=== PATIENT | male | born 1990 | race Caucasian/White ===

== ENCOUNTER 2017-01-01 10:13 | Emergency (ER) | payer SELFPAY ==
[~2017-01-01] VITALS: Ht 190.5 cm; Wt 75.0 kg
[2017-01-01 10:17] VITALS: BP 133/66; PULSE 76; RESP 16; TEMP 98.3; O2SAT 100
--- NOTE | 2017-01-01 10:32 | PD ---
HPI Chief Complaint: Alcohol/Drug Intoxication Time Seen by Provider: 10:22 Travel History International Travel<30 days: No Contact w/Intl Traveler<30days: No Traveled to known affect area: No History of Present Illness HPI This is a 26-year-old male who presents to the emergency department requesting help for alcohol abuse. He says he's been an alcoholic for 10 years. He says he drinks 2 bottles of alcohol a day, constant, severe. He has been increasingly depressed and has thought about just "drinking himself to ". He's never been in detox before. He is interested in enrolling in an inpatient detox program. He also says he feels like he is going into early alcohol withdrawal so that he can't describe these symptoms to me. [facility] Past Medical History Medical History: Denies Significant Hx Social History Alcohol Use: Yes Tobacco Use: Yes (smokes marijuana) Allergies-Medications (Allergen,Severity, Reaction): Coded Allergies: No Known Allergies (Unverified , 01/01/17) Reported Meds & Prescriptions Reported Meds & Active Scripts Active No Active Prescriptions or Reported Medications Review of Systems Except as stated in HPI: all other systems reviewed are Neg Physical Exam Narrative GENERAL: Smells of alcohol. SKIN: Focused skin assessment warm and dry. HEAD: Atraumatic. Normocephalic. EYES: Pupils equal and round. No injection or drainage. ENT: Moist mucous membranes NECK: Trachea midline. CARDIOVASCULAR: Regular rate and rhythm. No murmur appreciated. RESPIRATORY: Clear to auscultation. Breath sounds equal bilaterally. GASTROINTESTINAL: Abdomen soft, non-tender, nondistended. MUSCULOSKELETAL: No obvious deformities. NEUROLOGICAL: Awake and alert. No obvious cranial nerve deficits. Moving all extremities. PSYCHIATRIC: Appropriate mood and affect; insight and judgment normal. Data Data Last Documented VS Vital Signs Date Time Temp Pulse Resp B/P (MAP) Pulse Ox O2 Delivery O2 Flow Rate FiO2 01/01/17 10:17 98.3 76 16 133/66 (88) 100 Orders Orders Chlordiazepoxide (Librium) (01/01/17 10:45) [facility] Medical Decision Making Medical Screen Exam Complete: Yes Emergency Medical Condition: Yes Differential Diagnosis Alcohol intoxication, alcohol-induced mood disorder, alcohol withdrawal, depression Narrative Course This is a 26-year-old male who presents to the emergency department with a history of alcohol dependence. He is requesting detox. He does endorse some depression but I think this is all related to his alcohol use. I Don't think he meets Bhatti act criteria as he is a candidate for [facility] which would be a less restrictive option for his care and I don't think he is an immediate harm to himself but I do think he requires urgent intervention regarding his substance abuse. Patient was given a low-dose Librium and was referred to [facility]. Diagnosis Primary Impression: Alcohol dependence Qualified Codes: F10.20 - Alcohol dependence, uncomplicated Patient Instructions: General Instructions Additional Instructions: Follow up with [facility] in regards to psychiatric or substance related issues at: [address] [place] [address] Med/Other Pt SpecificInfo: No Change to Meds Scripts No Active Prescriptions or Reported Meds Disposition: 01 DISCHARGE HOME Condition: Stable Alexus Feng MD Jan 01, 2017 10:32
[2017-01-01] MEDS ORDERED: chlordiazePOXIDE 25 MG CAP PO ONE (10:45)
== END 2017-01-01 11:18 | disposition home or self-care (01) ==
LOC: PHED 10:13
DX: F10.20 Alcohol dependence, uncomplicated (principal)
CPT/HCPCS: 99283

== ENCOUNTER 2017-01-09 21:17 | Emergency (ER) | payer SELFPAY ==
[~2017-01-09] VITALS: Ht 190.5 cm; Wt 75.0 kg
[2017-01-09 21:19] VITALS: BP 131/73; PULSE 74; RESP 16; TEMP 98.6; O2SAT 96
--- NOTE | 2017-01-09 21:27 | PD ---
Physical Exam Date Seen by Provider: Jan 09, 2017 Time Seen by Provider: 21:24 Narrative 26-year-old male with history of psychiatric issues with reports of needing Seroquel and Effexor in the past. Patient states she's been off his meds for 3 weeks. Patient has been using alcohol and cocaine recently and states he's been having suicidal thoughts for the past 3 days. He states he is having visual hallucinations as well. Patient states he's been trying to kill himself by overdosing on cocaine. Patient has history of suicidal attempts in the past. Patient denies physical pain or fever or chills. Patient has no known drug allergies. Data Data Last Documented VS Vital Signs Date Time Temp Pulse Resp B/P (MAP) Pulse Ox O2 Delivery O2 Flow Rate FiO2 01/09/17 21:19 98.6 74 16 131/73 (92) 96 Room Air [facility] Medical Record Reviewed: Yes Supervised Visit with AZIZA: Yes Narrative Course Vital signs reviewed. Labs ordered for psychiatric protocol. Patient waiting bed placement. Scripts No Active Prescriptions or Reported Meds Condition: Stable Garcia Castillo Jan 09, 2017 21:27
[2017-01-09 21:32] VITALS: BP 136/77; PULSE 72; RESP 17; O2SAT 98
[2017-01-09 22:23] LABS: AUTOMATED NEUTROPHIL # 5.9 TH/MM3 (1.8-7.7); BASOPHIL # 0.1 TH/MM3 (0-0.2); BASOPHIL % 0.9 % (0.0-2.0); EOSINOPHIL # 0.2 TH/MM3 (0-0.4); HEMATOCRIT 39.9 % (39.0-51.0); HEMO FLAGS DIFF FINAL; LYMPH % 29.1 % (9.0-44.0); LYMPHOCYTE # 2.8 TH/MM3 (1.0-4.8); MEAN CELL VOLUME 84.9 FL (80.0-100.0); MEAN CORPUSCULAR HEMOGLOBIN 29.4 PG (27.0-34.0); MEAN CORPUSCULAR HGB CONC 34.6 % (32.0-36.0); MONO % 7.6 % (0.0-8.0); NEUT % 60.4 % (16.0-70.0); PLATELET COUNT 292 TH/MM3 (150-450); RED CELL DISTRIBUTION WIDTH 13.2 % (11.6-17.2); WHITE BLOOD COUNT 9.7 TH/MM3 (4.0-11.0)
[2017-01-09 22:32] LABS: ALT (GPT) 20 U/L (12-78)
[2017-01-09 22:34] LABS: ALKALINE PHOSPHATASE 73 U/L (45-117); TOTAL BILIRUBIN ADULT 0.4 MG/DL (0.2-1.0)
[2017-01-09 22:39] LABS: ANION GAP 7 MEQ/L (5-15); AST (GOT) 21 U/L (15-37); BLOOD UREA NITROGEN 14 MG/DL (7-18); CHLORIDE 106 MEQ/L (98-107); GLOMERULAR FILTRATION RATE 109 ML/MIN (>89); SODIUM (NA) 137 MEQ/L (136-145)
[2017-01-09 22:41] LABS: ALCOHOL LESS THAN 3 MG/DL (0-5); POTASSIUM 3.9 MEQ/L (3.5-5.1)
--- NOTE | 2017-01-09 23:17 | PD ---
HPI Chief Complaint: Psychiatric Symptoms Time Seen by Provider: 21:56 Travel History International Travel<30 days: No Contact w/Intl Traveler<30days: No Traveled to known affect area: No History of Present Illness HPI This is a 26-year-old male who has a history of alcohol dependence who presents to the emergency department reporting that he's been having increasing auditory hallucinations and thoughts of killing himself, constant, moderate severity. He says he would kill himself by using too much cocaine. He says he has a diagnosis of schizophrenia and he's been off of his mental health medications for quite some time. I saw him one week ago and at that time he was requesting help for alcohol detoxification. He didn't mention anything about hallucinations or schizophrenia that time. He is homeless. PFSH Past Medical History Diminished Hearing: No Psychiatric: Yes (SCHIZOPHRENIA) Tetanus Vaccination: Unknown Influenza Vaccination: No Past Surgical History Surgical History: No Previous Surgery Social History Alcohol Use: Yes Tobacco Use: Yes (/2 PPD) Substance Use: Yes (MARIJUANA, COCAINE) Allergies-Medications (Allergen,Severity, Reaction): Coded Allergies: No Known Allergies (Unverified , 01/09/17) Reported Meds & Prescriptions Reported Meds & Active Scripts Active No Active Prescriptions or Reported Medications Review of Systems Except as stated in HPI: all other systems reviewed are Neg Physical Exam Narrative GENERAL:Well appearing, no acute distress SKIN: Focused skin assessment warm and dry. HEAD: Atraumatic. Normocephalic. EYES: Pupils equal and round. No injection or drainage. ENT: Moist mucous membranes NECK: Trachea midline. CARDIOVASCULAR: Regular rate and rhythm. No murmur appreciated. RESPIRATORY: Clear to auscultation. Breath sounds equal bilaterally. GASTROINTESTINAL: Abdomen soft, non-tender, nondistended. MUSCULOSKELETAL: No obvious deformities. NEUROLOGICAL: Awake and alert. No obvious cranial nerve deficits. Moving all extremities. PSYCHIATRIC: Depressed mood, poor eye contact, expressing suicidal ideation Data Data Last Documented VS Vital Signs Date Time Temp Pulse Resp B/P (MAP) Pulse Ox O2 Delivery O2 Flow Rate FiO2 01/09/17 21:32 72 17 136/77 (96) 98 Room Air 01/09/17 21:19 98.6 Orders Orders Complete Blood Count With Diff (01/09/17 21:27) Comprehensive Metabolic Panel (01/09/17 21:27) Psych Screen (01/09/17 21:27) Drug Screen, Random Urine (01/09/17 21:27) Alcohol (Ethanol) (01/09/17 21:27) Labs Laboratory Tests Test 01/09/17 21:30 01/09/17 21:46 Urine Opiates Screen NEG Urine Barbiturates Screen NEG Urine Amphetamines Screen NEG Urine Benzodiazepines Screen NEG Urine Cocaine Screen POS Urine Cannabinoids Screen POS White Blood Count 9.7 TH/MM3 Red Blood Count 4.70 MIL/MM3 Hemoglobin 13.8 GM/DL Hematocrit 39.9 % Mean Corpuscular Volume 84.9 FL Mean Corpuscular Hemoglobin 29.4 PG Mean Corpuscular Hemoglobin Concent 34.6 % Red Cell Distribution Width 13.2 % Platelet Count 292 TH/MM3 Mean Platelet Volume 7.5 FL Neutrophils (%) (Auto) 60.4 % Lymphocytes (%) (Auto) 29.1 % Monocytes (%) (Auto) 7.6 % Eosinophils (%) (Auto) 2.0 % Basophils (%) (Auto) 0.9 % Neutrophils # (Auto) 5.9 TH/MM3 Lymphocytes # (Auto) 2.8 TH/MM3 Monocytes # (Auto) 0.7 TH/MM3 Eosinophils # (Auto) 0.2 TH/MM3 Basophils # (Auto) 0.1 TH/MM3 CBC Comment DIFF FINAL Differential Comment Blood Urea Nitrogen 14 MG/DL Creatinine 0.85 MG/DL Random Glucose 100 MG/DL Total Protein 6.7 GM/DL Albumin 3.8 GM/DL Calcium Level 8.6 MG/DL Alkaline Phosphatase 73 U/L Aspartate Amino Transf (AST/SGOT) 21 U/L Alanine Aminotransferase (ALT/SGPT) 20 U/L Total Bilirubin 0.4 MG/DL Sodium Level 137 MEQ/L Potassium Level 3.9 MEQ/L Chloride Level 106 MEQ/L Carbon Dioxide Level 24.0 MEQ/L Anion Gap 7 MEQ/L Estimat Glomerular Filtration Rate 109 ML/MIN Ethyl Alcohol Level LESS THAN 3 MG/DL MDM Medical Decision Making Medical Screen Exam Complete: Yes Emergency Medical Condition: Yes Interpretation(s) Afebrile, no tachycardia, normotensive No leukocytosis Electrolytes are reassuring Urine drug screen is positive for cocaine and cannabinoids Alcohols negative Differential Diagnosis Alcohol intoxication, cocaine intoxication, schizophrenia, psychosis, alcohol- induced mood disorder Narrative Course This is a 26-year-old male who presents to the emergency department with increasing thoughts of depression and auditory hallucinations. He reports that he has a history of schizophrenia. Patient is requesting psychiatric evaluation. Labs were obtained which were reassuring. Urine drug screen is positive for cocaine and cannabinoids. I recommended that the patient go to [facility] one week ago and he didn't. I do think he would benefit from evaluation by the psychiatry team. Scripts No Active Prescriptions or Reported Meds Condition: Alexus Villegas MD Jan 09, 2017 23:17
[2017-01-10 00:24] VITALS: BP 130/74; PULSE 72; RESP 18; O2SAT 99
[2017-01-10 02:00] VITALS: BP 116/75; PULSE 82; RESP 18; O2SAT 97
[2017-01-10 06:17] VITALS: BP 133/66; PULSE 95; RESP 18; O2SAT 97
[2017-01-10 10:00] VITALS: BP 127/59; PULSE 70; RESP 18
[2017-01-10 14:08] VITALS: BP 126/63; PULSE 65; RESP 17; TEMP 97.9; O2SAT 98
[2017-01-10 18:00] VITALS: BP 135/78; PULSE 59; RESP 17
[2017-01-11 02:04] VITALS: BP 120/68; PULSE 65; RESP 16; TEMP 99.4; O2SAT 100
[2017-01-11 03:40] VITALS: TEMP 97.4
--- NOTE | 2017-01-11 09:18 | PD ---
History of Present Illness Chief Complaint: Psychiatric Symptoms Time Seen by Provider: 09:00 Travel History International Travel<30 Days: No Contact w/Intl Traveler<30days: No Known affected area: No Legal Status Legal Status: Voluntary History of Present Illness: History of Present Illness HPI This is a 26-year-old male who has a history of alcohol dependence who presents to the emergency department reporting that he's been having increasing auditory hallucinations and thoughts of killing himself. He says he would kill himself by using too much cocaine. He says he has a diagnosis of schizophrenia and he' s been off of his mental health medications for quite some time.He was seen one week ago and at that time he was requesting help for alcohol detoxification. He didn't mention anything about hallucinations or schizophrenia that time. Currently he is homeless. Patient seen. EMR reviewed. Patient was monitored in [facility] for extended period of time. He presented no behavioral concerns and no suicidality. No signs of psychosis. Upon Arrival to ED positive toxicology for cocaine as well as cannabinoids. This morning he is clinically sober. Awake, alert, oriented. No signs of withdrawal noted. Speech is clear and logical . Does not appear to be responding to internal stimuli. States " I need to go to a treatment center. Can you guys send me to [facility]". There is no suicidal or homicidal ideation, intent or plan. Patient is counseled on accessing [facility]. He requests to have bus passes to get there. [facility] Past Medical History Diminished Hearing: No Psychiatric: Yes (SCHIZOPHRENIA) Tetanus Vaccination: Unknown Influenza Vaccination: No Past Surgical History Surgical History: No Previous Surgery Psychiatric History Psychiatric History Hx Psychiatric Treatment: Patient with a self reported hx of history schizophrenia. Patient with a hx of polysubstance abuse and alcohol dependence. History of Inpatient Treatment: No Guns or firearms in home: No Social History Single male, homeless, unemployed. Hx Alcohol Use: Yes Hx Tobacco Use: Yes (1/2 PPD) Hx Substance Use: Yes (wodka, marijuana, cocaine) Substance Use Type: Alcohol, Marijuana, Nicotine/Cigarettes, Cocaine Other Substances Used: 1/2 ppd Hx of Substance Use Treatment: No Family Psychiatric History Negative Allergies-Medications (Allergen,Severity, Reaction): Coded Allergies: No Known Allergies (Unverified , 01/09/17) Reported Meds & Prescriptions Reported Meds & Active Scripts Active No Active Prescriptions or Reported Medications Review of Systems Except as stated in HPI: all other systems reviewed are Neg Mental Status Examination Appearance: Appropriate Consciousness: Alert Orientation: x4 Motor Activity: Normal gait Speech: Unremarkable Language: Adequate Fund of Knowledge: Adequate Attention and Concentration: Adequate Memory: Unremarkable Mood: Appropriate Affect: Appropriate Thought Process & Associations: Intact Thought Content: Appropriate Hallucination Type: None Suicidal Ideation: No Suicidal Plan: No Suicidal Intention: No Homicidal Ideation: No Homicidal Plan: No Homicidal Intention: No Insight: Poor Judgment: Adequate MDM Medical Decision Making Medical Record Reviewed: Yes Assessment/Plan This is a 26-year-old male who has a history of alcohol dependence who presents to the emergency department reporting that he's been having increasing auditory hallucinations and thoughts of killing himself, He says he would kill himself by using too much cocaine. He reports that he has a diagnosis of schizophrenia and he's been off of his mental health medications for quite some time. Seen one week ago and at that time he was requesting help for alcohol detoxification. He didn't mention anything about hallucinations or schizophrenia that time. He is homeless. Patient was monitored and he presented no behavioral concerns and no suicidality. Has not been observed responding to internal stimuli. Patient does not meet criteria for Bhatti act. He presents no objective clinical symptoms of a mental illness as defined by Bhatti act. I suspect that he is malingering in order to obtain to obtain retirement. As patient reports and requests help to get to detox he will be provided with bus passes to get there. Psychiatrically clear for discharge. Orders Orders Diet Regular Basic (01/10/17 Lunch) Diet Regular Basic (01/10/17 Dinner) Diet Regular Basic (01/11/17 Breakfast) Results Vital Signs Date Time Temp Pulse Resp B/P (MAP) Pulse Ox O2 Delivery O2 Flow Rate FiO2 01/11/17 03:40 97.4 01/11/17 02:04 99.4 65 16 120/68 (85) 100 01/10/17 18:00 59 17 135/78 (97) Room Air 01/10/17 14:08 97.9 65 17 126/63 (84) 98 Room Air 01/10/17 10:00 70 18 127/59 (81) Room Air Diagnosis Primary Impression: Substance abuse Additional Impressions: Cocaine abuse Malingering Psychiatrically Cleared: Yes Med/ Other Pt Specific Info: No Meds Exist/No RX given Prescriptions No Active Prescriptions or Reported Meds Disposition: 01 DISCHARGE HOME Condition: Stable Problem Qualifiers Eliane Shea Jan 11, 2017 09:18
--- NOTE | 2017-01-11 09:41 | PD ---
Physical Exam Date Seen by Provider: Jan 11, 2017 Time Seen by Provider: 09:40 Data Data Last Documented VS Vital Signs Date Time Temp Pulse Resp B/P (MAP) Pulse Ox O2 Delivery O2 Flow Rate FiO2 01/11/17 03:40 97.4 01/11/17 02:04 65 16 100 01/10/17 18:00 Room Air Orders Orders Complete Blood Count With Diff (01/09/17 21:27) Comprehensive Metabolic Panel (01/09/17 21:27) Psych Screen (01/09/17 21:27) Drug Screen, Random Urine (01/09/17 21:27) Alcohol (Ethanol) (01/09/17 21:27) Diet Regular Basic (01/10/17 Breakfast) Diet Regular Basic (01/10/17 Lunch) Diet Regular Basic (01/10/17 Dinner) Diet Regular Basic (01/11/17 Breakfast) Ed Discharge Order (01/11/17 09:32) Labs Laboratory Tests Test 01/09/17 21:30 01/09/17 21:46 Urine Opiates Screen NEG Urine Barbiturates Screen NEG Urine Amphetamines Screen NEG Urine Benzodiazepines Screen NEG Urine Cocaine Screen POS Urine Cannabinoids Screen POS White Blood Count 9.7 TH/MM3 Red Blood Count 4.70 MIL/MM3 Hemoglobin 13.8 GM/DL Hematocrit 39.9 % Mean Corpuscular Volume 84.9 FL Mean Corpuscular Hemoglobin 29.4 PG Mean Corpuscular Hemoglobin Concent 34.6 % Red Cell Distribution Width 13.2 % Platelet Count 292 TH/MM3 Mean Platelet Volume 7.5 FL Neutrophils (%) (Auto) 60.4 % Lymphocytes (%) (Auto) 29.1 % Monocytes (%) (Auto) 7.6 % Eosinophils (%) (Auto) 2.0 % Basophils (%) (Auto) 0.9 % Neutrophils # (Auto) 5.9 TH/MM3 Lymphocytes # (Auto) 2.8 TH/MM3 Monocytes # (Auto) 0.7 TH/MM3 Eosinophils # (Auto) 0.2 TH/MM3 Basophils # (Auto) 0.1 TH/MM3 CBC Comment DIFF FINAL Differential Comment Blood Urea Nitrogen 14 MG/DL Creatinine 0.85 MG/DL Random Glucose 100 MG/DL Total Protein 6.7 GM/DL Albumin 3.8 GM/DL Calcium Level 8.6 MG/DL Alkaline Phosphatase 73 U/L Aspartate Amino Transf (AST/SGOT) 21 U/L Alanine Aminotransferase (ALT/SGPT) 20 U/L Total Bilirubin 0.4 MG/DL Sodium Level 137 MEQ/L Potassium Level 3.9 MEQ/L Chloride Level 106 MEQ/L Carbon Dioxide Level 24.0 MEQ/L Anion Gap 7 MEQ/L Estimat Glomerular Filtration Rate 109 ML/MIN Ethyl Alcohol Level LESS THAN 3 MG/DL MDM Medical Record Reviewed: Yes Supervised Visit with AZIZA: No Narrative Course 26-year-old homeless male with a history of substance abuse and mood disorder presented to the emergency room several days ago disoriented after having taken cocaine and cannabis. Patient has been seen by psychiatrist and is cleared for outpatient follow-up. Per psychiatrist, he is not a threat to herself or others. I spoke [id number] with the patient and he seems competent and denies any threat to himself or others. He is stable for discharge. Diagnosis Primary Impression: Substance abuse Referrals: [facility] (Out patient) call for appointment Patient Instructions: General Instructions, Cocaine Abuse (ED), Mood Disorders (ED), Cannabis Abuse (ED) Departure Forms: Tests/Procedures Scripts No Active Prescriptions or Reported Meds Disposition: DISCHARGE HOME Condition: Stable Alejandra James Jan 11, 2017 09:41
== END 2017-01-11 10:38 | disposition home or self-care (01) ==
LOC: NEPD 21:17 → NEPJ 01-11 10:38
DX: F14.10 Cocaine abuse, uncomplicated (principal); F20.9 Schizophrenia, unspecified; F17.200 Nicotine dependence, unspecified, uncomplicated; F10.20 Alcohol dependence, uncomplicated; Y90.0 Blood alcohol level of less than 20 mg/100 ml
CPT/HCPCS: 80053; 80307; 85025; 99284

== ENCOUNTER 2017-01-29 10:18 | Emergency (ER) | payer SELFPAY ==
[~2017-01-29] VITALS: Ht 190.5 cm; Wt 80.0 kg
[2017-01-29 10:19] VITALS: BP 139/76; PULSE 98; RESP 18; TEMP 98.7; O2SAT 100
[2017-01-29] MEDS ORDERED: GABA300C5 PO (10:39)
[2017-01-29] MEDS ORDERED: SERO300T PO (10:39)
[2017-01-29] MEDS ORDERED: AMIT100T2 PO (10:39)
[2017-01-29] MEDS ORDERED: IBUP1TAB7 PO (11:22)
[2017-01-29] MEDS ORDERED: ROBA500T PO (11:22)
[2017-01-29] MEDS ORDERED: ORPHENADRINE INJ 60 MG/2 ML AMP IM ONE (11:30)
[2017-01-29] MEDS ORDERED: KETOROLAC TROMETHAMINE 60 MG/2 ML (IM) VIAL IM ONE (11:30)
--- NOTE | 2017-01-29 11:32 | PD ---
HPI Chief Complaint: Back/ Neck Pain or Injury Time Seen by Provider: 11:11 Travel History International Travel<30 days: No Contact w/Intl Traveler<30days: No Traveled to known affect area: No History of Present Illness HPI 26-year-old male with PMH of chronic back pain, substance abuse, schizophrenia presents to the ED for evaluation of 3 day history of worsened lower back pain. Rated 8/10, worsened by certain movements. Focused in the left lower back and radiating down the back of the leg to the knee. Patient denies fevers, chills, dysuria, hematuria, penile discharge, numbness, tingling, weakness, limitations to range of motion of the extremities, saddle anesthesia or incontinence. 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 No treatment attempted at home. Patient does not have a primary care provider. PFSH Past Medical History Bipolar Disorder: Yes Diminished Hearing: No Herniated Disk: Yes Musculoskeletal: Yes (chronic back pain) Psychiatric: Yes (SCHIZOPHRENIA) Schizophrenia: Yes Tetanus Vaccination: > 5 Years Influenza Vaccination: No Past Surgical History Oral Surgery: Yes (wisdom teeth) Social History Alcohol Use: No Tobacco Use: Yes (1/2 PPD) Substance Use: No (denies at this time hx of marijuana, cocaine) Allergies-Medications (Allergen,Severity, Reaction): Coded Allergies: No Known Allergies (Unverified Adverse Reaction, Unknown, 01/29/17) Reported Meds & Prescriptions Reported Meds & Active Scripts Active Robaxin (Methocarbamol) 500 Mg Tab 1,000 Mg PO TID 5 Days Ibuprofen 800 Mg Tab 800 Mg PO Q8H 7 Days Reported Amitriptyline (Amitriptyline HCl) 100 Mg Tab 100 Mg PO HS Gabapentin 300 Mg Cap 300 Mg PO QID Seroquel (Quetiapine Fumarate) 300 Mg Tab 300 Mg PO HS Review of Systems Except as stated in HPI: all other systems reviewed are Neg Physical Exam Narrative GENERAL: Well-nourished, well-developed white male in no acute distress. SKIN: Focused skin assessment warm/dry. HEAD: Normocephalic. EYES: No scleral icterus. No injection or drainage. NECK: Supple, trachea midline. No JVD or lymphadenopathy. CARDIOVASCULAR: Regular rate and rhythm without murmurs, gallops, or rubs. RESPIRATORY: Breath sounds clear and equal bilaterally. No accessory muscle use. GASTROINTESTINAL: Abdomen soft, non-tender, nondistended. MUSCULOSKELETAL: No cyanosis, or edema. 5/5 strength of dorsiflexion, plantar flexion, knee and hip flexion bilaterally. Straight leg raise positive on the left. BACK: No obvious deformity. No CVA tenderness. Mild tenderness to palpation in the lower lumbar spine as well as the left-sided paraspinal musculature and sciatic notch. Data Data Last Documented VS Vital Signs Date Time Temp Pulse Resp B/P (MAP) Pulse Ox O2 Delivery O2 Flow Rate FiO2 01/29/17 10:19 98.7 98 18 139/76 (97) 100 Room Air Orders Orders Ketorolac Inj (Toradol Inj) (01/29/17 11:30) Orphenadrine Inj (Norflex Inj) (01/29/17 11:30) [facility] Medical Decision Making Medical Screen Exam Complete: Yes Emergency Medical Condition: Yes Differential Diagnosis Exacerbation of chronic back pain versus musculoskeletal pain versus sciatica versus malingering versus other Narrative Course 26-year-old male with PMH of chronic back pain, substance abuse, schizophrenia presents to the ED for evaluation of 3 day history of 8/10, left-sided lower back pain. Gradual onset, worsened by certain movements. Radiates down the left leg to the knee. No red flag symptoms, fevers reported. On exam the patient has 5/5 strength in the bilateral lower extremity. Straight leg raise positive on the left. He was administered IM Toradol and Robaxin. He is prescribed a 7 day course of Robaxin and ibuprofen. He is encouraged to return to normal, gentle activity as tolerated, take the medication as prescribed, follow up with the [place] [facility]. He was provided information for contacting the [place] [facility]. The patient indicated understanding of the instructions and is agreeable to the care plan. He stable and discharged home. Diagnosis Primary Impression: Exacerbation of chronic back pain Referrals: [facility] Patient Instructions: Acute Low Back Pain (ED), General Instructions Additional Instructions: Rest, hydrate. A mixture of rest and activity as best for back pain. Resume normal, gentle activities as tolerated. Take medication as prescribed. Follow-up with the [place] [facility] as discussed. Return to the ED for worsening symptoms or any urgent or emergent medical condition. Med/Other Pt SpecificInfo: Prescription(s) given Scripts Methocarbamol (Robaxin) 500 Mg Tab 1000 MG PO TID for Muscle Spasm for 5 Days, TAB 0 Refills Prov: Camila Montanez MD 01/29/17 Ibuprofen (Ibuprofen) 800 Mg Tab 800 MG PO Q8H for 7 Days, #21 TAB 0 Refills Prov: Camila Montanez MD 01/29/17 Disposition: 01 DISCHARGE HOME Condition: Stable Barbra Carreno Jan 29, 2017 11:32
== END 2017-01-29 11:56 | disposition home or self-care (01) ==
LOC: NEPC 10:18
DX: M54.5 Low back pain (principal); G89.29 Other chronic pain; M79.605 Pain in left leg; F17.200 Nicotine dependence, unspecified, uncomplicated; Z87.39 Personal history of other diseases of the musculoskeletal system and connective tissue; Z86.59 Personal history of other mental and behavioral disorders
CPT/HCPCS: 96372; 99284; J1885; J2360